=== PATIENT | female | born 1990 | race African-American/Black ===

== ENCOUNTER 2023-03-21 14:27 | Emergency (ER) | payer MEDICAID, OTHER ==
[~2023-03-21] VITALS: Ht 167.6 cm; Wt 77.3 kg
[2023-03-21 15:41] VITALS: BP 104/57; PULSE 86; RESP 16; TEMP 98.3; O2SAT 97
[2023-03-21] MEDS ORDERED: TRAM50TA2 PO (16:11)
[2023-03-21] MEDS ORDERED: PRED20TA2 PO (16:11)
[2023-03-21] MEDS ORDERED: HYDROcodone-ACET 5/325MG TAB PO ONE (16:15)
== END 2023-03-21 16:34 | disposition home or self-care (01) ==
LOC: ER 14:27
DX: M54.41 Lumbago with sciatica, right side (principal); X50.1XXA Overexertion from prolonged static or awkward postures, initial encounter; Y93.01 Activity, walking, marching and hiking; Y92.89 Other specified places as the place of occurrence of the external cause; Y99.8 Other external cause status

== ENCOUNTER 2023-05-09 09:31 | Emergency (ER) | payer MEDICAID ==
[~2023-05-09] VITALS: Ht 170.2 cm; Wt 77.7 kg
[2023-05-09 09:31] VITALS: BP 113/86; PULSE 85; RESP 18; TEMP 97.9; O2SAT 96
[~2023-05-09 09:31] MED LIST: PRED20TA2 PO; TRAM50TA2 PO
[2023-05-09] MEDS ORDERED: ACET-1080 PO (10:33)
== END 2023-05-09 10:42 | disposition home or self-care (01) ==
LOC: ER 09:31
DX: M23.92 Unspecified internal derangement of left knee (principal); Z79.899 Other long term (current) drug therapy
CPT/HCPCS: 73562